=== PATIENT | female | born 1995 | race Caucasian/White ===

== ENCOUNTER 2024-04-27 17:34 | Emergency (ER) | payer BC, OTHER ==
[2024-04-27 17:51] VITALS: TEMP 97.3; BMI 23.5
[2024-04-27 19:34] LABS: BASO % 0.1 % (0-2.0); EOS % 1.1 % (0-4.5); HEMATOCRIT 43.8 % (32.4-45.2); HEMOGLOBIN 14.8 GM/dL (10.7-15.3); LYMPH % 25.2 % (8-40); MCH 29.7 pg (25.7-33.7); MCHC 33.8 g/dl (32.0-36.0); MEAN CELL VOLUME 87.9 fl (80-96); MEAN PLT VOLUME 8.8 fl (7.5-11.1); MONO % 8.8 % (3.8-10.2); NEUT % 64.8 % (42.8-82.8); PLATELET COUNT 364 10^3/uL (134-434); RBC 4.99 M/mm3 (3.60-5.2); RDW 13.6 % (11.6-15.6); WHITE BLOOD COUNT 10.1 K/mm3 (4.0-10.0)
[2024-04-27] MEDS: SODIUM CHLORIDE 1,000 ML IV STA (19:47)
[2024-04-27 19:50] LABS: CHLORIDE 101 mmol/L (98-107); POTASSIUM 3.7 mmol/L (3.5-5.1); SODIUM 137 mmol/L (136-145)
[2024-04-27 19:52] LABS: ALBUMIN 3.7 g/dl (3.4-5.0); ANION GAP 7 mmol/L (4-13); BLOOD UREA NITROGEN 24.2 mg/dL (7-18); CALCIUM 9.3 mg/dL (8.5-10.1); CO2 29 mmol/L (21-32); GLUCOSE,RANDOM 88 mg/dL (74-106)
[2024-04-27 19:55] LABS: SGOT/AST 18 U/L (15-37); SGPT/ALT 22 U/L (13-61)
[2024-04-27 19:57] LABS: BILIRUBIN,TOTAL 0.4 mg/dL (0.2-1); TOT PROT 7.9 g/dl (6.4-8.2)
[2024-04-27 19:58] LABS: ALK PHOS 61 U/L (45-117)
[2024-04-27 20:39] LABS: EPI CELLS 24 /uL (0-25.1); HYALINE CASTS 0 /uL (0-3.1); URINE APPEARANCE CLEAR; URINE BACTERIA 61 /uL (0-1359); URINE BILIRUBIN NEGATIVE (NEGATIVE); URINE COLOR YELLOW; URINE GLUCOSE (UA) NEGATIVE (NEGATIVE); URINE KETONE TRACE (NEGATIVE); URINE LEUK ESTERASE 1+ (NEGATIVE); URINE NITRITE NEGATIVE (NEGATIVE); URINE PROTEIN TRACE (NEGATIVE); URINE RBC 21 /uL (0-23.9); URINE WBC 18 /uL (0-25.8)
[2024-04-27 21:29] VITALS: BP 102/65; PULSE 63; RESP 16
[2024-04-27 22:19] LABS: POTASSIUM 3.9 mmol/L (3.5-5.1)
[2024-04-27 22:20] LABS: CALCIUM 8.2 mg/dL (8.5-10.1)
[2024-04-27 22:21] LABS: BLOOD UREA NITROGEN 22.6 mg/dL (7-18)
[2024-04-27 22:24] LABS: CREATININE 0.7 mg/dL (0.55-1.3); PHOSPHOROUS 4.3 mg/dL (2.5-4.9)
== END 2024-04-28 00:20 | disposition home or self-care (01) ==
LOC: JER 17:34
PROC: 3E0337Z Introduction of Electrolytic and Water Balance Substance into Peripheral Vein, Percutaneous Approach (ICD-10-PCS; principal; 2024-04-27)
DX: R42 Dizziness and giddiness (principal); R11.0 Nausea; R53.83 Other fatigue; R55 Syncope and collapse
CPT/HCPCS: 36415; 80048; 80053; 81003; 82550; 82962; 83735; 84100; 84439; 84443; 84484; 84703; 85025; 93005; 93010; 99284-25